=== PATIENT | female | born 1975 | race Hispanic/Latino ===

== ENCOUNTER 2019-06-24 07:03 | Day surgery (SDC) | payer BC ==
[2019-06-23 16:03] VITALS: BP 125/70
[2019-06-23 16:11] LABS: BASOPHILS % (AUTO) 0.4 % (0.0-5.0); EOSINOPHILS % (AUTO) 2.2 % (0.0-8.0); HEMATOCRIT 44.9 % (36-48); LYMPHOCYTES % (AUTO) 15.6 % (21.0-51.0); MEAN CORPUSCULAR HGB CONC 32.3 g/dL (32.0-36.0); MEAN CORPUSCULAR VOLUME 96.1 fL (79-99); MONOCYTES % (AUTO) 5.2 % (3.0-13.0); NEUTROPHILS % (AUTO) 76.2 % (40.0-77.0); PLATELET COUNT (AUTO) 355 K/uL (130-400); RED BLOOD CELL COUNT(AUTO) 4.67 MIL/uL (4.00-5.50); RED CELL DISTRIBUTION WIDTH 13.8 % (11.0-15.5); WHITE BLOOD COUNT (AUTO) 13.4 K/uL (4.8-10.8)
--- NOTE | 2019-06-23 16:46 | NUR ---
ABNORMAL LAB WBC REPORTED TO DR. JONES, NO NEW ORDERS AT THIS TIME. OK TO PROCEED.
[2019-06-24] VITALS (16 sets, daily range): BP systolic 107–125; BP diastolic 46–89
[~2019-06-24] VITALS: Ht 154.9 cm; Wt 78.8 kg
[2019-06-24] MEDS: CEFAZOLIN SODIUM 1 GM VIAL IVP SCH ×2 (06:00→08:20)
[~2019-06-24 07:03] MED LIST: LACTATED RINGERS 1000ML 1,000 ML IV SCH
[2019-06-24] MEDS ORDERED: PROPOFOL 10 MG/ML 20ML VIAL IV ONE (07:20)
[2019-06-24] MEDS ORDERED: LIDOCAINE PF 2% 5ML ABBOJECT ONE (07:20)
[2019-06-24] MEDS ORDERED: ROCURONIUM 10MG/1ML SYR 10 MG/ML ML ONE (07:20)
[2019-06-24] MEDS ORDERED: FENTANYL CITRATE PF 50 MCG/1 ML 2ML VIAL ONE (07:20)
[2019-06-24] MEDS ORDERED: SUCCINYLCHOLINE CHLORIDE 20 MG/ML 10 ML VIAL ONE (07:20)
[2019-06-24] MEDS ORDERED: BUPIVACAINE/PF 0.25% 30ML VIAL IJ ONE (07:24)
[2019-06-24] MEDS ORDERED: GLYCOPYRROLATE 1 MG/5 ML SYRINGE ONE (09:12)
[2019-06-24] MEDS ORDERED: NEOSTIGMINE 5MG/5ML SYR IV ONE (09:12)
[2019-06-24] MEDS ORDERED: ONDANSETRON HCL 4 MG/2 ML VIAL ONE ×2 (09:17→09:54)
[2019-06-24] MEDS ORDERED: MEPERIDINE-PF 25 MG/ML SYG ONE (09:17)
== END 2019-06-24 11:00 | disposition home or self-care (01) ==
LOC: DAH 07:03
PROVIDERS: ATTEND Obstetrics & Gynecology
DX: Z30.2 Encounter for sterilization (principal); N92.0 Excessive and frequent menstruation with regular cycle; N81.2 Incomplete uterovaginal prolapse; F17.210 Nicotine dependence, cigarettes, uncomplicated; Z90.49 Acquired absence of other specified parts of digestive tract; Z72.89 Other problems related to lifestyle; Z98.890 Other specified postprocedural states; Z83.3 Family history of diabetes mellitus
CPT/HCPCS: 36415; 58563; 58661; 84703; 85025; 86850; 86900; 86901; A4213; A4215; A4221; A4222; A4223; A4351; A4355; A4510; A4600; A4649; A4663; A6260; C1769 ×2; G0168; J0330; J0690; J2001; J2175; J2405 ×2; J2704; J2710; J3010; J3490 ×2; J7030 ×3; J7120